=== PATIENT | male | born 1960 | race Two or more races ===

== ENCOUNTER 2018-04-02 19:19 | Emergency (ER) | payer BC, OTHER ==
[2018-04-02] MEDS ORDERED: Ondansetron 4 MG/2 ML SDV IVPUSH ONE (19:42)
[2018-04-02] MEDS ORDERED: Ketorolac 30 MG/ML SDV IVPUSH ONE (19:42)
[2018-04-02] MEDS ORDERED: Sodium Chloride 0.9% 1,000 ML IV SCH (19:45)
--- NOTE | 2018-04-03 02:17 | ER ---
DATE SEEN: 04/02/2018 CHIEF COMPLAINT: Nausea and vomiting. HISTORY OF PRESENT ILLNESS: This is a 57-year-old male complaining of vomiting, nausea, and abdominal discomfort. His symptoms started suddenly this morning, associated with diarrhea, [id number] pain. No fever. He states that he ate in a restaurant last night. MEDICATIONS: Reviewed. PAST MEDICAL HISTORY: Hypertension and type 2 diabetes. SOCIAL HISTORY: He drinks occasionally. PHYSICAL EXAMINATION: VITAL SIGNS: He has blood pressure 116/50, pulse of 89, temperature is normal. ENT: Negative. CHEST: Clear. ABDOMEN: Soft and benign. LABORATORY DATA: He had a creatinine of 1.8, calcium 8.3. White cell count is normal. IMPRESSION: 1. Acute gastroenteritis. 2. Acute kidney injury. PLAN: 1 L of normal saline. Zofran IV, prescription was sent for 4 mg q.6 hours p.r.n. I advised to follow up in the next 1-2 days if symptoms have not improved. /[id number] BOB/SENAIT
== END 2018-04-02 21:52 | disposition home or self-care (01) ==
LOC: FB.ED 19:19
DX: K52.9 Noninfective gastroenteritis and colitis, unspecified (principal); N17.9 Acute kidney failure, unspecified; I10 Essential (primary) hypertension; E11.9 Type 2 diabetes mellitus without complications
CPT/HCPCS: 80053; 82150; 85025; 96361; 96374; 96375; 99284; J1885; J2405; J7030

== ENCOUNTER 2021-02-19 22:00 | Emergency (ER) | payer OTHER ==
--- NOTE | 2021-02-19 22:29 | EDM.PDOC ---
ED HPI GENERAL MEDICAL PROBLEM - General Chief Complaint: Cardiovascular Problem Stated Complaint: swollen legs Time Seen by Provider: 02/19/21 22:26 Source of Information: Reports: Patient History Limitations: Reports: No Limitations - History of Present Illness INITIAL COMMENTS - FREE TEXT/NARRATIVE: Get came to ED today due to leg swelling ,weight gain,unintentional. He has DM 2,HTN and CKD. Denies any chest pain or SOB. - Related Data Allergies Allergy/AdvReac Type Severity Reaction Status Date / Time morphine Allergy Hives Verified 02/19/21 22:08 Home Meds: Home Meds . [Unable to Verify Home Med List] 12/14/15 [History] Past Medical History HEENT History: Reports: Impaired Vision Cardiovascular History: Reports: High Cholesterol, Hypertension Endocrine/Metabolic History: Reports: Diabetes, Type II Social & Family History - Family History Family Medical History: Unobtainable - Caffeine Use Caffeine Use: Reports: Coffee, Energy Drinks, Soda, Tea ED ROS GENERAL - Review of Systems Review Of Systems: Comprehensive ROS is negative, except as noted in HPI. ED EXAM, GENERAL - Physical Exam Exam: See Below Exam Limited By: No Limitations General Appearance: Alert, WD/WN, No Apparent Distress Ears: Normal External Exam Nose: Normal Inspection Throat/Mouth: Normal Inspection Head: Atraumatic, Sinus Tenderness Respiratory/Chest: No Respiratory Distress Extremities: Pedal Edema Course - Vital Signs Last Recorded V/S: Last Vital Signs Temp 98.1 F 02/19/21 22:03 Pulse 81 02/19/21 22:03 Resp 20 02/19/21 22:03 BP 179/77 H 02/19/21 22:03 Pulse Ox 100 02/19/21 22:03 - Orders/Labs/Meds Labs: Laboratory Tests 02/19/21 02/19/21 02/19/21 Range/Units 22:25 22:25 22:25 WBC 5.9 (3.2-10.1) x10-3/uL RBC 3.96 (3.90-5.90) x10(6)uL Hgb 11.8 L (12.9-17.7) g/dL Hct 34.2 L (38.3-50.1) % MCV 86.4 (80.8-98.7) fL MCH 29.8 (27.0-33.3) pg MCHC 34.4 (28.7-35.3) g/dL RDW 13.5 (12.4-15.0) % Plt Count 201 (117-477) x10(3)uL MPV 7.7 (6.7-11.0) fL Neut % (Auto) 55.2 (40.3-71.8) % Lymph % (Auto) 33.7 (15.8-45.3) % [place] % (Auto) 7.3 (5.5-15.2) % Eos % (Auto) 3.4 (0.1-6.8) % Baso % (Auto) 0.4 (0.3-3.8) % Neut # (Auto) 3.3 (1.7-6.9) x10-3/uL Lymph # (Auto) 2.0 (0.5-4.5) x10-3/uL [place] # (Auto) 0.4 (0.0-1.2) x10-3/uL Eos # (Auto) 0.2 (0.0-0.6) x10-3/uL Baso # (Auto) 0.0 (0.0-0.3) x10-3/uL Sodium 140 (135-145) mmol/L Potassium 3.7 (3.5-5.3) mmol/L Chloride 102 (100-110) mmol/L Carbon Dioxide 26 (21-32) mmol/L BUN 33 H (7-18) mg/dL Creatinine 2.9 H* (0.70-1.30) mg/dL Est Cr Clr Drug Dosing 22.07 mL/min Estimated GFR (MDRD) 22 L (>60) BUN/Creatinine Ratio 11.4 (9-20) Glucose 251 H (80-116) mg/dL Hemoglobin A1c (<5.7) % Calcium 7.7 L (8.6-10.2) mg/dL Total Bilirubin 0.4 (0.1-1.3) mg/dL AST 17 (5-25) IU/L ALT 25 D (12-36) U/L Alkaline Phosphatase 104 (56-112) IU/L NT-Pro-B Natriuret Pep 151 H (<=125) pg/mL Total Protein 6.9 (6.0-8.0) g/dL Albumin 3.1 L (3.5-5.2) g/dL Globulin 3.8 g/dL Albumin/Globulin Ratio 0.8 // Range/Units 22:25 WBC (3.2-10.1) x10-3/uL RBC (3.90-5.90) x10(6)uL Hgb (12.9-17.7) g/dL Hct (38.3-50.1) % MCV (80.8-98.7) fL MCH (27.0-33.3) pg MCHC (28.7-35.3) g/dL RDW (12.4-15.0) % Plt Count (117-477) x10(3)uL MPV (6.7-11.0) fL Neut % (Auto) (40.3-71.8) % Lymph % (Auto) (15.8-45.3) % [place] % (Auto) (5.5-15.2) % Eos % (Auto) (0.1-6.8) % Baso % (Auto) (0.3-3.8) % Neut # (Auto) (1.7-6.9) x10-3/uL Lymph # (Auto) (0.5-4.5) x10-3/uL [place] # (Auto) (0.0-1.2) x10-3/uL Eos # (Auto) (0.0-0.6) x10-3/uL Baso # (Auto) (0.0-0.3) x10-3/uL Sodium (135-145) mmol/L Potassium (3.5-5.3) mmol/L Chloride (100-110) mmol/L Carbon Dioxide (21-32) mmol/L BUN (7-18) mg/dL Creatinine (0.70-1.30) mg/dL Est Cr Clr Drug Dosing mL/min Estimated GFR (MDRD) (>60) BUN/Creatinine Ratio (9-20) Glucose (80-116) mg/dL Hemoglobin A1c 7.2 H (<5.7) % Calcium (8.6-10.2) mg/dL Total Bilirubin (0.1-1.3) mg/dL AST (5-25) IU/L ALT (12-36) U/L Alkaline Phosphatase (56-112) IU/L NT-Pro-B Natriuret Pep (<=125) pg/mL Total Protein (6.0-8.0) g/dL Albumin (3.5-5.2) g/dL Globulin g/dL Albumin/Globulin Ratio Departure - Departure Time of Disposition: 23:19 Disposition: Home, Self-Care 01 Condition: Good Clinical Impression: HTN (hypertension), Edema Referrals: Russ Simmons MD [Primary Care Provider] - Forms: ED Department Discharge Sepsis Event Note (ED) - Evaluation Sepsis Screening Result: No Definite Risk - Focused Exam Vital Signs: Vital Signs Temp Pulse Resp BP Pulse Ox 02/19/21 22:03 98.1 F 81 20 179/77 H 100 - Problem List & Annotations (1) CKD (chronic kidney disease) SNOMED Code(s): 380834687 Code(s): N18.9 - CHRONIC KIDNEY DISEASE, UNSPECIFIED Status: Acute Current Visit: Yes Qualifiers: Chronic kidney disease stage: stage 3 (moderate) (2) Diabetes type 2, uncontrolled SNOMED Code(s): 042421308, 776771770 Code(s): E11.65 - TYPE 2 DIABETES MELLITUS WITH HYPERGLYCEMIA Status: Acute Current Visit: Yes (3) HTN (hypertension) SNOMED Code(s): 21245776 Code(s): I10 - ESSENTIAL (PRIMARY) HYPERTENSION Status: Acute Current Visit: Yes Qualifiers: Hypertension type: essential hypertension Qualified Code(s): I10 - Essential (primary) hypertension (4) Edema SNOMED Code(s): 305311562, 933822077 Code(s): R60.9 - EDEMA, UNSPECIFIED Status: Acute Current Visit: Yes Qualifiers: Edema type: generalized Qualified Code(s): R60.1 - Generalized edema (5) Nephrotic syndrome SNOMED Code(s): 92851752 Code(s): N04.9 - NEPHROTIC SYNDROME WITH UNSPECIFIED MORPHOLOGIC CHANGES Status: Acute Current Visit: Yes - Problem List Review Problem List Initiated/Reviewed/Updated: Yes - Assessment/Plan Plan: Creatine at Baseline 2.9 .DC home,follow up with Nephrology next week.Elevate legs,compression stockings
[2021-02-19 22:58] LABS: HEMOGLOBIN A1C 7.2 % (<5.7)
[2021-02-19] MEDS ORDERED: cloNIDine 0.1 MG Tab PO ONE (23:28)
== END 2021-02-20 | disposition home or self-care (01) ==
LOC: FB.ED 22:00
DX: R60.0 Localized edema (principal); I10 Essential (primary) hypertension; Z88.5 Allergy status to narcotic agent; E11.9 Type 2 diabetes mellitus without complications
CPT/HCPCS: 36415; 80053; 83036; 83880; 85025; 99284; A9270

== ENCOUNTER 2024-03-28 06:39 | Day surgery (SDC) | payer MEDICARE, MEDICAID ==
[2024-03-28] MEDS ORDERED: Propofol 200 MG/20 ML SDV IV ONE (06:40)
[2024-03-28] MEDS ORDERED: Sodium Chloride 0.9% 10 ML Syringe FLUSH PRN (06:50)
[2024-03-28] MEDS: Lactated Ringers 1,000 ML IV PRN (08:02)
[2024-03-28] MEDS: acetaZOLAMIDE 500 MG Cap.ER PO ONE (09:15)
== END 2024-03-28 09:45 | disposition home or self-care (01) ==
LOC: FB.SDS 06:39
PROVIDERS: ATTEND Ophthalmology
DX: E11.36 Type 2 diabetes mellitus with diabetic cataract (principal); H25.813 Combined forms of age-related cataract, bilateral; E11.3293 Type 2 diabetes mellitus with mild nonproliferative diabetic retinopathy without macular edema, bilateral; H40.013 Open angle with borderline findings, low risk, bilateral; E11.22 Type 2 diabetes mellitus with diabetic chronic kidney disease; I13.11 Hypertensive heart and chronic kidney disease without heart failure, with stage 5 chronic kidney disease, or end stage renal disease; N18.6 End stage renal disease; I25.10 Atherosclerotic heart disease of native coronary artery without angina pectoris; Z79.82 Long term (current) use of aspirin; Z79.899 Other long term (current) drug therapy
CPT/HCPCS: 00142; 66984; 82947; A9270; J2704; J7120; V2632

== ENCOUNTER → 2024-04-25 | Day surgery (SDC) | payer MEDICARE, MEDICAID ==
[~2024-04-25] MED LIST: Propofol 200 MG/20 ML SDV IV ONE
[2024-04-25] MEDS: Sodium Chloride 0.9% 10 ML Syringe FLUSH PRN (09:04)
[2024-04-25] MEDS: Lactated Ringers 1,000 ML IV SCH (09:05)
[2024-04-25] MEDS: acetaZOLAMIDE 500 MG Cap.ER PO ONE (10:37)
== END ==
LOC: FB.SDS 07:59
PROVIDERS: ATTEND Ophthalmology
DX: E11.36 Type 2 diabetes mellitus with diabetic cataract (principal); H25.9 Unspecified age-related cataract; I12.0 Hypertensive chronic kidney disease with stage 5 chronic kidney disease or end stage renal disease; E11.22 Type 2 diabetes mellitus with diabetic chronic kidney disease; N18.6 End stage renal disease; K21.9 Gastro-esophageal reflux disease without esophagitis; E66.9 Obesity, unspecified; Z68.35 Body mass index [BMI] 35.0-35.9, adult; Z79.82 Long term (current) use of aspirin; Z79.899 Other long term (current) drug therapy; Z88.5 Allergy status to narcotic agent; Z88.0 Allergy status to penicillin
CPT/HCPCS: 00142; 82947; A9270-GY; J2704; J3490; J7120; V2632

== ENCOUNTER 2025-06-09 09:51 | Emergency (ER) | payer MEDICARE, MEDICAID ==
[2025-06-09 10:20] LABS: BASOPHILS ABSOLUTE AUTO 0.0 x10-3/uL (0.0-0.3); BASOPHILS PERCENT AUTO 0.3 % (0.3-3.8); EOSINOPHILS ABSOLUTE AUTO 0.1 x10-3/uL (0.0-0.6); EOSINOPHILS PERCENT AUTO 1.9 % (0.1-6.8); LYMPHOCYTES ABSOLUTE AUTO 1.0 x10-3/uL (0.5-4.5); LYMPHOCYTES PERCENT AUTO 15.9 % (15.8-45.3); MEAN PLATELET VOLUME 8.3 fL (6.7-11.0); MONOCYTES ABSOLUTE AUTO 0.7 x10-3/uL (0.0-1.2); MONOCYTES PERCENT AUTO 11.3 % (5.5-15.2); NEUTROPHILS ABSOLUTE AUTO 4.6 x10-3/uL (1.7-6.9); NEUTROPHILS PERCENT AUTO 70.6 % (40.3-71.8); PLATELET COUNT,PLT 126 x10(3)uL (117-477); RED BLOOD CELL COUNT 4.51 x10(6)uL (3.90-5.90); RED CELL DISTRIBUTION WIDTH 14.4 % (12.4-15.0); WHITE BLOOD CELL COUNT,WBC 6.5 x10-3/uL (3.2-10.1)
[2025-06-09 10:30] LABS: A/G RATIO 1.2; ALANINE AMINOTRANSFERASE,ALT 28 U/L (12-36); ASPARTATE AMNIOTRANSFERASE,AST 21 IU/L (5-25); BILIRUBIN TOTAL 0.6 mg/dL (0.1-1.3); BLOOD UREA NITROGEN,BUN 36 mg/dL (7-18); CARBON DIOXIDE,CO2 28 mmol/L (21-32); CHLORIDE,CL 107 mmol/L (100-110); EST CRCL DRUG DOSING (CG) 26.46 mL/min; ESTIMATED GFR 31 mL/min (>60); GLUCOSE RANDOM 89 mg/dL (80-116); POTASSIUM,K 3.7 mmol/L (3.5-5.3); PROTEIN TOTAL,TP 6.5 g/dL (6.0-8.0); SODIUM,NA 143 mmol/L (135-145)
[2025-06-09 10:34] LABS: CREATININE 2.3 mg/dL (0.70-1.30)
== END 2025-06-09 13:00 | disposition home or self-care (01) ==
LOC: FB.ED 09:51
DX: R07.89 Other chest pain (principal); I25.10 Atherosclerotic heart disease of native coronary artery without angina pectoris; E78.00 Pure hypercholesterolemia, unspecified; I10 Essential (primary) hypertension; E11.9 Type 2 diabetes mellitus without complications; Z88.0 Allergy status to penicillin; Z91.048 Other nonmedicinal substance allergy status; Z88.5 Allergy status to narcotic agent; Z79.899 Other long term (current) drug therapy
CPT/HCPCS: 36415; 71045; 80053; 82947; 84484; 85025; 93005; 99285; A9270